=== PATIENT | male | born 1950 | race Caucasian/White ===

== ENCOUNTER 2018-09-10 05:26 | Day surgery (SDC) | payer OTHER ==
[~2018-09-10] VITALS: Ht 188 cm; Wt 120.9 kg
--- NOTE | ~2018-09-10 | O ---
[facility] [place] [address] OPERATIVE REPORT Name: ESMER PAYTON Room #: 150-2 [facility]..#: [id number] Admission: 09/10/18 ������������������ Attend Phys: Krzysztof Pierce MD Discharge: ������������������ Date of : 54 Report #: [id number] THIS REPORT FOR: //name// CC: Benjamin Pierce PREOPERATIVE DIAGNOSIS: Symptomatic large umbilical hernia. POSTOPERATIVE DIAGNOSIS: Symptomatic large umbilical hernia. PROCEDURE PERFORMED: Open repair of umbilical hernia with large Ventralex ST patch. ANESTHESIA: General anesthesia. COMPLICATIONS: None. ESTIMATED BLOOD LOSS: 2 mL. SURGEON: Krzysztof Pierce MD PROCEDURE NOTE: With the patient under general anesthesia with LMA, no muscle paralysis, abdomen was prepped and draped in sterile fashion. Preop IV antibiotic was given. Abdomen was prepped and draped. Timeout was performed. A 0.25% Marcaine was used to anesthetize the skin and subcutaneous tissue. The patient had a fairly large size umbilical hernia defect. The skin was anesthetized with 0.25% Marcaine. Curvilinear incision was then made along the inferior edge of the umbilicus, the incision was about 4 cm. After incising through skin and subcutaneous tissue, the hernia sac was identified. The patient also has some properitoneal fat in the cephalad location. The skin over the hernia sac and the properitoneal fat was dissected free. The hernia sac was also free from the fascia edges. Hemostat was used to grab the fascia edges. The hernia sac and the properitoneal fat was reduced in the properitoneal space. Dissection of the properitoneal space was performed. The properitoneal space opened up well. The peritoneum on the left side was very thin and a small opening was made in the peritoneum laterally on the left. The space was created without difficulty and the fascia defect is about 3 cm in diameter. A large Ventralex patch was placed. This was moistened, folded and then placed in the properitoneal space. The mesh opened up well. The mesh was not kinked or bent. The irrigation was performed prior to this. Irrigation was aspirated out. The fascia was then closed. The fascia was closed with 0 PDS in horizontal mattress fashion. Three separate sutures were placed. The center and the right horizontal mattress suture incorporated the strap of the Ventralex patch. The strap was then trimmed at the fascia level. Skin was brought down to the fascia with 4-0 PDS, subcu was closed with 4-0 PDS, skin was closed with 5-0 PDS. Steri-Strip, 4 x 4 was used to put pressure on the skin of the umbilicus to [address] [address] OPERATIVE REPORT Name: ESMER PAYTON Room #: 150-2 [facility] M.R.#: [id number] Admission: 09/10/18 ������������������ Attend Phys: Krzysztof Pierce MD Discharge: ������������������ Date of : 54 Report #: [id number] prevent the seroma formation. OpSite was used for dressing. The patient was awakened and taken to the recovery room, tolerated the procedure well. ��������������������������������������������� ���������������������������������������� By: ��������������������������������������������� [id number] Krzysztof Pierce MD /nt
[~2018-09-10 05:26] MED LIST: ALEVE220 MG PO; ASPIR 8181 MG PO; CENTRUM SILVER1 EAC2 PO; CRESTOR20 MG PO; FINASTERIDE5 MG PO; FISH OIL 1,001000 M2 PO; GLUCOSAMINE &1 EACH PO; LISINOPRIL20 MG PO
[2018-09-10 11:48] VITALS: BP 137/80
[2018-09-10 12:49] LABS: HEMATOCRIT 34.7 % (42.0-52.0); HEMOGLOBIN 11.9 gm/dL (14.0-18.0)
[2018-09-10 12:56] LABS: CALCIUM 9.1 mg/dL (8.5-10.1); CREATININE 1.1 mg/dL (0.7-1.3); POTASSIUM 4.3 mmol/L (3.5-5.1)
[2018-09-10] MEDS ORDERED: NORCO 5-325 TA1 EACH PO (14:30)
[2018-09-10 14:55] VITALS: BP 137/80
== END 2018-09-10 15:35 | disposition home or self-care (01) ==
LOC: TBA 05:26 → OR 05:26
PROVIDERS: Surgery
DX: K42.9 Umbilical hernia without obstruction or gangrene (principal); I10 Essential (primary) hypertension; N40.0 Benign prostatic hyperplasia without lower urinary tract symptoms; E78.5 Hyperlipidemia, unspecified; G47.33 Obstructive sleep apnea (adult) (pediatric); Z98.890 Other specified postprocedural states; Z87.891 Personal history of nicotine dependence; Z79.82 Long term (current) use of aspirin; Z79.899 Other long term (current) drug therapy
CPT/HCPCS: 50010; 50101; 50386; 50403; 50621; 56524; 56525; 62110; 62900; 70005

== ENCOUNTER → 2020-03-01 | Outpatient (CLI) | payer OTHER ==
[~2020-03-01] MED LIST changes: +NORCO 5-325 TA1 EACH PO
== END ==
LOC: SJCVC 14:25
PROVIDERS: ATTEND Internal Medicine
DX: I11.0 Hypertensive heart disease with heart failure (principal); I50.32 Chronic diastolic (congestive) heart failure; E78.2 Mixed hyperlipidemia; G47.33 Obstructive sleep apnea (adult) (pediatric); G56.03 Carpal tunnel syndrome, bilateral upper limbs; Z79.899 Other long term (current) drug therapy

== ENCOUNTER → 2020-03-14 | Outpatient (CLI) | payer OTHER | LOC: SJCVCIMAG 07:37 | PROVIDERS: ATTEND Internal Medicine | DX: I34.0 Nonrheumatic mitral (valve) insufficiency (principal); I27.20 Pulmonary hypertension, unspecified; I11.0 Hypertensive heart disease with heart failure; I50.9 Heart failure, unspecified ==

== ENCOUNTER → 2021-03-01 | Outpatient (CLI) | payer OTHER | LOC: SJCVC 10:04 | PROVIDERS: ATTEND Internal Medicine | DX: I49.3 Ventricular premature depolarization (principal); I11.0 Hypertensive heart disease with heart failure; I50.32 Chronic diastolic (congestive) heart failure; G47.33 Obstructive sleep apnea (adult) (pediatric); G56.03 Carpal tunnel syndrome, bilateral upper limbs; N40.0 Benign prostatic hyperplasia without lower urinary tract symptoms; Z82.49 Family history of ischemic heart disease and other diseases of the circulatory system; Z79.82 Long term (current) use of aspirin; Z79.899 Other long term (current) drug therapy; Z72.89 Other problems related to lifestyle; Z88.8 Allergy status to other drugs, medicaments and biological substances ==